=== PATIENT | male | born 1950 | race African-American/Black ===

== ENCOUNTER 2020-08-22 19:41 | Inpatient (IN) ==
[2020-08-22] MEDS ORDERED: SODIUM CHLORIDE 0.9% 1,000 ML IV STA ×2 (20:17→22:40)
[2020-08-22] MEDS ORDERED: IBUPROFEN 600 MG TABLET PO STA (20:17)
[2020-08-22 20:43] LABS: ABG Base Excess -1.4 MMOL/L (-2.5-2.5); ABG HCO3 23.1 MMOL/L (20-26); ABG Oxygen Saturation 90.9 % (95-100); ABG PCO2 41.6 MM HG (35-48); ABG PH 7.367 (7.35-7.45); ABG PO2 65.1 MM HG (80-95); ABG TCO2 20.8 MMOL/L (23-27); Allen Test Positive
[2020-08-22 21:16] LABS: Basophils % 0.1 % (0.0-0.8); Hematocrit 43.8 VOL% (42.0-52.0); Hemoglobin 13.7 GM/DL (14.0-18.0); Immature Granulocytes % 0.8 %; Immature Granulocytes Absolute 0.17 #; Lymphocytes # 7.8 10*3/uL (1.4-4.0); Lymphocytes % 34.3 % (21.2-54.2); Mean Corpuscular HGB Conc 31.3 GM/DL (32-36); Mean Platelet Volume 11.2 FL (9.6-12.0); Monocytes % 4.9 % (1.7-12.7); NRBC # 0.02 10*3/uL; Neutrophils % 59.9 % (38.7-73.9); Platelet Count 176 T/CUMM (130-400); Red Blood Count 4.71 MC/CUMM (3.8-5.5); Red Cell Distribution Width 14.8 % (9.3-17.3); White Blood Count 22.7 T/CUMM (4-12)
[2020-08-22 21:25] LABS: Bilirubin,Urine Negative (Negative); Blood, Urine Small mg/dL (Negative); Glucose,Urine (UA) Negative (Negative); Ketones,Urine Negative (Negative); Nitrite,Urine Negative (Negative); Protein,Urine >=500 MG/DL; RBC,Urine 252 /HPF (0-4); Squamous Epithelial Cell,Urine Occasional /HPF (0-10); Urine Appearance CLOUDY (Clear); Urine Color Amber (Yellow); Urine Specific Gravity 1.029 (1.001-1.035); Urine Urobilinogen < 2.0 EU/DL (0.2-1.0)
[2020-08-22 21:36] LABS: Band Neutrophils 3 % (0-10); Lymphocytes 34 % (20-55); Platelet Estimate Adequate; Reactive Lymphocytes Few; Segmented Neutrophils 58 % (50-85); Total Cells Counted 100
[2020-08-22 21:48] LABS: Alanine Aminotransferase 38 U/L (16-61); Albumin 2.4 G/DL (3.4-5.0); Alkaline Phosphatase 98 U/L (45-117); Aspartate Amino Transferase 74 U/L (0-37); Blood Urea Nitrogen 56 MG/DL (7-18); Calcium 9.2 MG/DL (8.5-10.1); Estimated Glom Filtration Rate 16 ML/MIN; Ferritin 5028.2 ng/ml (26-388); Glucose 230 MG/DL (74-106); Osmolality,Calculated 303.3 MOS/KG (273-304); Total Protein 7.9 G/DL (6.4-8.3)
[2020-08-22] MEDS ORDERED: methylPREDNISolone SOD SUC 125 MG/2 ML VIAL IV STA (21:52)
[2020-08-22] MEDS ORDERED: AZITHROMYCIN INJ 500 MG in SODIUM CHLORIDE 0.9% 250 ML IV STA (21:52)
[2020-08-22] MEDS ORDERED: GLUCAGON 1 MG VIAL IM PRN (23:44)
[2020-08-22] MEDS ORDERED: DEXTROSE 50% 25 GM/50 ML VIAL IV PRN ×2 (23:44→23:57)
[2020-08-22] MEDS ORDERED: guaiFENesin/DM ER 600-30 MG TABLET PO PRN (23:49)
[2020-08-22] MEDS ORDERED: hydrALAZINE 20 MG/1 ML VIAL IV PRN (23:49)
[2020-08-22] MEDS ORDERED: ONDANSETRON 4 MG/2 ML VIAL IV PRN (23:49)
[2020-08-22] MEDS ORDERED: NICOTINE 21 MG/24 HR PATCH TRANSDERM PRN (23:49)
[2020-08-23] MEDS ORDERED: SODIUM CHLORIDE 0.9% 100 ML IV ONE (01:25)
[2020-08-23] MEDS: cefTRIAXone 1,000 MG in SYRINGE 1 EACH IV SCH (01:27)
[2020-08-23] MEDS ORDERED: INFLUENZA VIRUS VACCINE 0.5 ML SYRINGE IM ONE (02:36)
[2020-08-23] MEDS: SODIUM CHLORIDE 0.9% 1,000 ML IV SCH ×2 (04:04→23:00)
[2020-08-23 04:51] LABS: ABG Base Excess -4.7 MMOL/L (-2.5-2.5); ABG HCO3 21.6 MMOL/L (20-26); ABG Oxygen Saturation 93.6 % (95-100); ABG PCO2 44.3 MM HG (35-48); ABG PH 7.305 (7.35-7.45); ABG PO2 76.6 MM HG (80-95); ABG TCO2 22.9 MMOL/L (23-27); Allen Test Positive
[2020-08-23] MEDS: INSULIN REGULAR 100 UNIT/ML SUBCUT SCH ×4 (09:27→22:49)
[2020-08-23] MEDS: ZINC SULFATE 220 MG CAPSULE PO SCH (09:50)
[2020-08-23 10:02] LABS: Basophils % 0.1 % (0.0-0.8); Hematocrit 37.8 VOL% (42.0-52.0); Hemoglobin 11.8 GM/DL (14.0-18.0); Immature Granulocytes % 0.7 %; Immature Granulocytes Absolute 0.14 #; Lymphocytes # 7.6 10*3/uL (1.4-4.0); Lymphocytes % 37.8 % (21.2-54.2); Mean Corpuscular HGB Conc 31.2 GM/DL (32-36); Mean Corpuscular Volume 93.8 FL (87-102); Mean Platelet Volume 11.1 FL (9.6-12.0); Monocytes % 3.5 % (1.7-12.7); NRBC # 0.02 10*3/uL; Neutrophils % 57.9 % (38.7-73.9); Platelet Count 158 T/CUMM (130-400); Red Blood Count 4.03 MC/CUMM (3.8-5.5); Red Cell Distribution Width 15.1 % (9.3-17.3); White Blood Count 20.2 T/CUMM (4-12)
[2020-08-23] MEDS: HEPARIN 5,000 UNIT/1 ML VIAL SUBCUT SCH ×2 (10:06→22:49)
[2020-08-23 10:22] LABS: Atypical Lymphocytes Few; Band Neutrophils 4 % (0-10); Lymphocytes 40 % (20-55); Metamyelocytes 1 %; Segmented Neutrophils 50 % (50-85); Total Cells Counted 100
[2020-08-23 10:23] LABS: Hypochromasia 1+; Microcytosis 1+; Platelet Estimate Adequate
[2020-08-23 10:35] LABS: Alanine Aminotransferase 38 U/L (16-61); Alkaline Phosphatase 67 U/L (45-117); Aspartate Amino Transferase 79 U/L (0-37); Bilirubin,Total < 0.39 MG/DL (0.2-1.0); Blood Urea Nitrogen 70 MG/DL (7-18); Calcium 8.2 MG/DL (8.5-10.1); Estimated Glom Filtration Rate 12 ML/MIN; Glucose 278 MG/DL (74-106); Osmolality,Calculated 320.6 MOS/KG (273-304); Total Protein 6.9 G/DL (6.4-8.3)
[2020-08-23 10:51] LABS: Ferritin 5587.5 ng/ml (26-388)
[2020-08-23] MEDS: methylPREDNISolone SOD SUC 40 MG/1 ML VIAL IV SCH (11:47)
[2020-08-23] MEDS: SODIUM CHLORIDE 0.45% 1,000 ML IV SCH (17:26)
[2020-08-23] MEDS: AZITHROMYCIN INJ 500 MG in SODIUM CHLORIDE 0.9% 250 ML IV SCH (22:50)
[2020-08-24] MEDS: cefTRIAXone 1,000 MG in SYRINGE 1 EACH IV SCH ×2 (00:07→23:56)
[2020-08-24] MEDS: methylPREDNISolone SOD SUC 40 MG/1 ML VIAL IV SCH ×3 (00:07→23:55)
[2020-08-24 05:31] LABS: Basophils % 0.1 % (0.0-0.8); Hematocrit 30.6 VOL% (42.0-52.0); Immature Granulocytes % 0.5 %; Immature Granulocytes Absolute 0.13 #; Lymphocytes # 10.9 10*3/uL (1.4-4.0); Mean Corpuscular HGB Conc 31.7 GM/DL (32-36); Mean Corpuscular Volume 93.6 FL (87-102); Mean Platelet Volume 11.8 FL (9.6-12.0); Monocytes % 3.6 % (1.7-12.7); NRBC # 0.02 10*3/uL; Neutrophils % 49.8 % (38.7-73.9); Platelet Count 157 T/CUMM (130-400); Red Blood Count 3.27 MC/CUMM (3.8-5.5); Red Cell Distribution Width 15.3 % (9.3-17.3); White Blood Count 23.6 T/CUMM (4-12)
[2020-08-24 05:36] LABS: Hemoglobin 9.7 GM/DL (14.0-18.0)
[2020-08-24 05:51] LABS: Band Neutrophils 1 % (0-10); Hypochromasia Slight; Lymphocytes 43 % (20-55); Platelet Estimate Normal; Segmented Neutrophils 54 % (50-85); Total Cells Counted 100
[2020-08-24 05:59] LABS: Calcium 8.2 MG/DL (8.5-10.1); Ferritin 5373.6 ng/ml (26-388); Osmolality,Calculated 319.6 MOS/KG (273-304)
[2020-08-24 06:06] LABS: Parathyroid Hormone Intact 364.3 PG/ML (18.4-80.1)
[2020-08-24 06:08] LABS: Total Protein 6.2 G/DL (6.4-8.3); Uric Acid 10.2 MG/DL (3.5-7.2)
[2020-08-24 09:13] LABS: Immunoglobulin A (Chem) 139 MG/DL (70-400); Immunoglobulin G (Chem) 890 MG/DL (700-1600); Immunoglobulin M (Chem) 150 MG/DL (40-230); Total Protein (Chem) 6.2 G/DL (6.4-8.3)
[2020-08-24] MEDS: INSULIN REGULAR 100 UNIT/ML SUBCUT SCH ×4 (10:09→21:17)
[2020-08-24] MEDS: SODIUM CHLORIDE 0.45% 1,000 ML IV SCH ×3 (10:09→23:58)
[2020-08-24] MEDS: HEPARIN 5,000 UNIT/1 ML VIAL SUBCUT SCH ×2 (10:10→21:16)
[2020-08-24] MEDS: SODIUM CHLORIDE 0.9% 1,000 ML IV SCH ×2 (10:10→23:34)
[2020-08-24 11:05] LABS: Albumin (SPE) 2.7 G/DL (3.2-5.3); Albumin (SPE) Rel % 44.3 %; Alpha 1 (SPE) 0.3 G/DL (0.1-0.4); Alpha 1 (SPE) Rel % 4.9 %; Alpha 2 (SPE) 1.1 G/DL (0.4-1.0); Alpha 2 (SPE) Rel % 17.4 %; Beta (SPE) 1.1 G/DL (0.5-1.1); Beta (SPE) Rel % 17.1 %; Gamma (SPE) Rel % 16.3 %
[2020-08-24 13:37] LABS: Immuno Free Light Chain Kappa 20.67 MG/DL (0.33-1.94); Immuno Free Light Chain Lambda 6.38 MG/DL (0.57-2.63); Immuno Free Light Chain Ratio 3.24 MG/DL (0.26-1.65)
[2020-08-24] MEDS ORDERED: MAGNESIUM HYDROXIDE SUSP 30 ML UDCUP PO STA (16:32)
[2020-08-24] MEDS ORDERED: SODIUM PHOSPHATE ENEMA 133 ML BOTTLE RECTAL STA (16:32)
[2020-08-24] MEDS: AZITHROMYCIN INJ 500 MG in SODIUM CHLORIDE 0.9% 250 ML IV SCH (21:17)
[2020-08-25 05:49] LABS: Basophils % 0.1 % (0.0-0.8); Hematocrit 31.9 VOL% (42.0-52.0); Hemoglobin 10.3 GM/DL (14.0-18.0); Immature Granulocytes % 1.4 %; Immature Granulocytes Absolute 0.35 #; Lymphocytes # 12.2 10*3/uL (1.4-4.0); Lymphocytes % 48.8 % (21.2-54.2); Mean Corpuscular HGB Conc 32.3 GM/DL (32-36); Mean Corpuscular Volume 91.1 FL (87-102); Mean Platelet Volume 11.7 FL (9.6-12.0); Monocytes % 3.4 % (1.7-12.7); NRBC # 0.05 10*3/uL; Neutrophils % 46.3 % (38.7-73.9); Platelet Count 200 T/CUMM (130-400); Red Cell Distribution Width 14.9 % (9.3-17.3); White Blood Count 25.1 T/CUMM (4-12)
[2020-08-25 06:11] LABS: Hypochromasia 1+; Microcytosis 1+; Platelet Estimate Normal
[2020-08-25 06:17] LABS: Albumin 2.1 G/DL (3.4-5.0); Bilirubin,Total 0.4 MG/DL (0.2-1.0); Calcium 8.5 MG/DL (8.5-10.1); Osmolality,Calculated 325.7 MOS/KG (273-304); Total Protein 6.7 G/DL (6.4-8.3)
[2020-08-25 06:41] LABS: Ferritin 6171.7 ng/ml (26-388); Osmolality,Calculated 332.4 MOS/KG (273-304)
[2020-08-25] MEDS: POLYETHYLENE GLYCOL POWDER 17 GM PACK PO SCH (09:18)
[2020-08-25] MEDS: HEPARIN 5,000 UNIT/1 ML VIAL SUBCUT SCH ×2 (09:18→21:18)
[2020-08-25] MEDS: SODIUM BICARB INJ 50 MEQ in DEXTROSE 5% NACL 0.45% 1,000 ML IV SCH (09:18)
[2020-08-25] MEDS: INSULIN REGULAR 100 UNIT/ML SUBCUT SCH ×4 (09:18→21:18)
[2020-08-25] MEDS: ZINC SULFATE 220 MG CAPSULE PO SCH (09:19)
[2020-08-25] MEDS: MEMANTINE 10 MG TABLET PO SCH ×2 (09:45→21:18)
[2020-08-25] MEDS: ASCORBIC ACID 500 MG TABLET PO SCH ×2 (09:45→21:17)
[2020-08-25] MEDS: MULTIVITAMIN (CENTRUM) TABLET PO SCH (09:46)
[2020-08-25] MEDS: PARoxetine 20 MG TABLET PO SCH (09:46)
[2020-08-25] MEDS: methylPREDNISolone SOD SUC 40 MG/1 ML VIAL IV SCH ×2 (12:16→23:10)
[2020-08-25] MEDS: DONEPEZIL 5 MG TABLET PO SCH (21:18)
[2020-08-25] MEDS: AZITHROMYCIN INJ 500 MG in SODIUM CHLORIDE 0.9% 250 ML IV SCH (21:18)
[2020-08-25] MEDS: SIMVASTATIN 20 MG TABLET PO SCH (21:18)
[2020-08-26] MEDS: SODIUM BICARB INJ 50 MEQ in DEXTROSE 5% NACL 0.45% 1,000 ML IV SCH (00:10)
[2020-08-26] MEDS: cefTRIAXone 1,000 MG in SYRINGE 1 EACH IV SCH (01:28)
[2020-08-26 06:09] LABS: Basophils # 0.1 10*3/uL (0.0-0.2); Basophils % 0.3 % (0.0-0.8); Hematocrit 33.9 VOL% (42.0-52.0); Immature Granulocytes % 2.9 %; Immature Granulocytes Absolute 0.79 #; Lymphocytes # 15.2 10*3/uL (1.4-4.0); Lymphocytes % 54.9 % (21.2-54.2); Mean Corpuscular HGB Conc 32.4 GM/DL (32-36); Mean Corpuscular Volume 89.9 FL (87-102); Mean Platelet Volume 10.7 FL (9.6-12.0); NRBC # 0.06 10*3/uL; Neutrophils % 38.9 % (38.7-73.9); Platelet Count 248 T/CUMM (130-400); Red Blood Count 3.77 MC/CUMM (3.8-5.5); Red Cell Distribution Width 14.7 % (9.3-17.3); White Blood Count 27.6 T/CUMM (4-12)
[2020-08-26 06:33] LABS: Atypical Lymphocytes Few; Lymphocytes 53 % (20-55); Platelet Estimate Adequate; Segmented Neutrophils 45 % (50-85); Total Cells Counted 100
[2020-08-26 06:34] LABS: Hypochromasia 1+; Microcytosis 1+; Smudge Cells Few
[2020-08-26 06:58] LABS: Calcium 8.6 MG/DL (8.5-10.1); Ferritin 4520.8 ng/ml (26-388); Osmolality,Calculated 341.3 MOS/KG (273-304)
[2020-08-26] MEDS: MULTIVITAMIN (CENTRUM) TABLET PO SCH (09:08)
[2020-08-26] MEDS: PARoxetine 20 MG TABLET PO SCH (09:09)
[2020-08-26] MEDS: POLYETHYLENE GLYCOL POWDER 17 GM PACK PO SCH (09:09)
[2020-08-26] MEDS: MEMANTINE 10 MG TABLET PO SCH ×2 (09:09→20:30)
[2020-08-26] MEDS: HEPARIN 5,000 UNIT/1 ML VIAL SUBCUT SCH ×2 (09:09→20:30)
[2020-08-26] MEDS: ASCORBIC ACID 500 MG TABLET PO SCH ×2 (09:10→20:30)
[2020-08-26] MEDS: INSULIN REGULAR 100 UNIT/ML SUBCUT SCH ×4 (09:12→20:30)
[2020-08-26] MEDS: methylPREDNISolone SOD SUC 40 MG/1 ML VIAL IV SCH (09:19)
[2020-08-26] MEDS ORDERED: SODIUM BICARB INJ 50 MEQ in STERILE WATER INJ 1,000 ML IV SCH (12:00)
[2020-08-26] MEDS ORDERED: SODIUM CHLORIDE 23.4% CONC INJ 38.5 MEQ, SODIUM BICARB INJ 50 MEQ in STERILE WATER INJ ... IV SCH (13:00)
[2020-08-26] MEDS ORDERED: SODIUM BICARB IV SCH (14:00)
[2020-08-26] MEDS ORDERED: SODIUM CHLORIDE IV SCH ×2 (14:00→17:00)
[2020-08-26] MEDS ORDERED: STERILE WATER IV SCH (14:00)
[2020-08-26] MEDS ORDERED: [UNRECOGNIZED DRUG - OTHER] IV SCH (17:00)
[2020-08-26] MEDS: DEXTROSE 5% NACL 0.45% 1,000 ML IV SCH (17:31)
[2020-08-26] MEDS: DONEPEZIL 5 MG TABLET PO SCH (20:30)
[2020-08-26] MEDS: SIMVASTATIN 20 MG TABLET PO SCH (20:31)
[2020-08-26] MEDS: AZITHROMYCIN INJ 500 MG in SODIUM CHLORIDE 0.9% 250 ML IV SCH (20:32)
[2020-08-26] MEDS: diphenhydrAMINE CAP 25 MG CAPSULE PO PRN (20:32)
[2020-08-27] MEDS: cefTRIAXone 1,000 MG in SYRINGE 1 EACH IV SCH (00:25)
[2020-08-27 07:09] LABS: Calcium 8.9 MG/DL (8.5-10.1); Ferritin 4210.2 ng/ml (26-388)
[2020-08-27 08:34] LABS: Basophils # 0.1 10*3/uL (0.0-0.2); Basophils % 0.3 % (0.0-0.8); Hematocrit 35.4 VOL% (42.0-52.0); Hemoglobin 11.2 GM/DL (14.0-18.0); Immature Granulocytes % 3.7 %; Immature Granulocytes Absolute 1.53 #; Lymphocytes # 23.8 10*3/uL (1.4-4.0); Lymphocytes % 58.2 % (21.2-54.2); Mean Corpuscular HGB Conc 31.6 GM/DL (32-36); Mean Corpuscular Volume 92.2 FL (87-102); Monocytes % 3.6 % (1.7-12.7); NRBC # 0.13 10*3/uL; Neutrophils % 34.2 % (38.7-73.9); Platelet Count 310 T/CUMM (130-400); Red Blood Count 3.84 MC/CUMM (3.8-5.5); Red Cell Distribution Width 14.8 % (9.3-17.3)
[2020-08-27 08:53] LABS: Atypical Lymphocytes Few; Hypochromasia 1+; Lymphocytes 63 % (20-55); Microcytosis Slight; Platelet Estimate Adequate; Segmented Neutrophils 33 % (50-85); Total Cells Counted 100
[2020-08-27] MEDS: MEMANTINE 10 MG TABLET PO SCH ×2 (10:26→20:54)
[2020-08-27] MEDS: POLYETHYLENE GLYCOL POWDER 17 GM PACK PO SCH (10:26)
[2020-08-27] MEDS: MULTIVITAMIN (CENTRUM) TABLET PO SCH (10:26)
[2020-08-27] MEDS: HEPARIN 5,000 UNIT/1 ML VIAL SUBCUT SCH ×2 (10:26→20:54)
[2020-08-27] MEDS: methylPREDNISolone SOD SUC 40 MG/1 ML VIAL IV SCH (10:26)
[2020-08-27] MEDS: INSULIN REGULAR 100 UNIT/ML SUBCUT SCH ×4 (10:26→20:10)
[2020-08-27] MEDS: ZINC SULFATE 220 MG CAPSULE PO SCH (10:26)
[2020-08-27] MEDS: ASCORBIC ACID 500 MG TABLET PO SCH ×2 (10:26→20:54)
[2020-08-27] MEDS: PARoxetine 20 MG TABLET PO SCH (10:26)
[2020-08-27 10:58] LABS: Basophils # 0.2 10*3/uL (0.0-0.2); Basophils % 0.3 % (0.0-0.8); Hematocrit 36.4 VOL% (42.0-52.0); Hemoglobin 11.8 GM/DL (14.0-18.0); Immature Granulocytes % 3.7 %; Immature Granulocytes Absolute 1.62 #; Lymphocytes # 25.2 10*3/uL (1.4-4.0); Lymphocytes % 57.7 % (21.2-54.2); Mean Corpuscular HGB Conc 32.4 GM/DL (32-36); Mean Corpuscular Volume 90.8 FL (87-102); Mean Platelet Volume 10.3 FL (9.6-12.0); Monocytes % 3.3 % (1.7-12.7); NRBC # 0.13 10*3/uL; Platelet Count 330 T/CUMM (130-400); Red Blood Count 4.01 MC/CUMM (3.8-5.5); Red Cell Distribution Width 14.7 % (9.3-17.3)
[2020-08-27 10:59] LABS: White Blood Count 43.7 T/CUMM (4-12)
[2020-08-27 11:17] LABS: Band Neutrophils 3 % (0-10); Lymphocytes 58 % (20-55); Metamyelocytes 1 %; Nucleated Red Blood Cells 1 (0-5); Platelet Estimate Normal; Promyelocytes 2 %; Segmented Neutrophils 35 % (50-85); Total Cells Counted 100
[2020-08-27 11:22] LABS: Anisocytosis Slight; Atypical Lymphocytes 1+; Smudge Cells 1+
[2020-08-27] MEDS: DEXTROSE 5% NACL 0.45% 1,000 ML IV SCH (15:55)
[2020-08-27] MEDS: PIPERACILLIN/TAZOBACTAM 3,375 MG in SODIUM CHLORIDE 0.9% 100 ML IV SCH (16:26)
[2020-08-27] MEDS: DEXTROSE 5% 1,000 ML IV SCH (17:31)
[2020-08-27] MEDS: diphenhydrAMINE CAP 25 MG CAPSULE PO PRN (20:53)
[2020-08-27] MEDS: ACETAMINOPHEN 325 MG TABLET PO PRN (20:53)
[2020-08-27] MEDS: DONEPEZIL 5 MG TABLET PO SCH (20:54)
[2020-08-27] MEDS: SIMVASTATIN 20 MG TABLET PO SCH (20:55)
[2020-08-27] MEDS: AZITHROMYCIN INJ 500 MG in SODIUM CHLORIDE 0.9% 250 ML IV SCH (20:55)
[2020-08-28] MEDS: PIPERACILLIN/TAZOBACTAM 3,375 MG in SODIUM CHLORIDE 0.9% 100 ML IV SCH ×2 (01:35→14:39)
[2020-08-28 06:28] LABS: Basophils # 0.1 10*3/uL (0.0-0.2); Basophils % 0.3 % (0.0-0.8); Hematocrit 36.9 VOL% (42.0-52.0); Hemoglobin 11.7 GM/DL (14.0-18.0); Immature Granulocytes % 3.9 %; Lymphocytes # 28.2 10*3/uL (1.4-4.0); Mean Corpuscular HGB Conc 31.7 GM/DL (32-36); Mean Corpuscular Volume 92.7 FL (87-102); Mean Platelet Volume 10.4 FL (9.6-12.0); Monocytes % 2.4 % (1.7-12.7); NRBC # 0.07 10*3/uL; Neutrophils % 32.4 % (38.7-73.9); Platelet Count 363 T/CUMM (130-400); Red Blood Count 3.98 MC/CUMM (3.8-5.5)
[2020-08-28 06:44] LABS: Ferritin 5089.4 ng/ml (26-388); Osmolality,Calculated 346.4 MOS/KG (273-304)
[2020-08-28 07:07] LABS: White Blood Count 46.1 T/CUMM (4-12)
[2020-08-28] MEDS ORDERED: FUROSEMIDE 40 MG/4 ML VIAL IV ONE (08:55)
[2020-08-28] MEDS: INSULIN REGULAR 100 UNIT/ML SUBCUT SCH ×4 (09:30→21:15)
[2020-08-28] MEDS: HEPARIN 5,000 UNIT/1 ML VIAL SUBCUT SCH ×2 (09:30→21:15)
[2020-08-28] MEDS: PARoxetine 20 MG TABLET PO SCH (09:31)
[2020-08-28] MEDS: DEXAMETHASONE 4 MG TABLET PO SCH (09:31)
[2020-08-28] MEDS: ASCORBIC ACID 500 MG TABLET PO SCH ×2 (09:31→21:14)
[2020-08-28] MEDS: POLYETHYLENE GLYCOL POWDER 17 GM PACK PO SCH (09:31)
[2020-08-28] MEDS: MEMANTINE 10 MG TABLET PO SCH ×2 (09:31→21:14)
[2020-08-28 10:45] LABS: Lymphocytes 61 % (20-55); Segmented Neutrophils 39 % (50-85); Total Cells Counted 100
[2020-08-28 10:46] LABS: Burr Cells Few; Nucleated Red Blood Cells 3 (0-5); Ovalocytes Few; Platelet Estimate Normal; Polychromasia Slight
[2020-08-28] MEDS: DONEPEZIL 5 MG TABLET PO SCH (21:14)
[2020-08-28] MEDS: SIMVASTATIN 20 MG TABLET PO SCH (21:15)
[2020-08-28] MEDS: AZITHROMYCIN INJ 500 MG in SODIUM CHLORIDE 0.9% 250 ML IV SCH (21:18)
[2020-08-28] MEDS: DEXTROSE 5% 1,000 ML IV SCH (22:25)
[2020-08-29] MEDS: PIPERACILLIN/TAZOBACTAM 3,375 MG in SODIUM CHLORIDE 0.9% 100 ML IV SCH ×2 (01:45→15:27)
[2020-08-29 06:19] LABS: Basophils # 0.1 10*3/uL (0.0-0.2); Basophils % 0.3 % (0.0-0.8); Hematocrit 31.7 VOL% (42.0-52.0); Immature Granulocytes % 4.9 %; Immature Granulocytes Absolute 2.19 #; Lymphocytes # 26.2 10*3/uL (1.4-4.0); Lymphocytes % 58.7 % (21.2-54.2); Mean Corpuscular HGB Conc 31.5 GM/DL (32-36); Mean Corpuscular Volume 91.4 FL (87-102); Mean Platelet Volume 10.7 FL (9.6-12.0); Monocytes % 1.3 % (1.7-12.7); NRBC # 0.09 10*3/uL; Neutrophils % 34.8 % (38.7-73.9); Platelet Count 364 T/CUMM (130-400); Red Blood Count 3.47 MC/CUMM (3.8-5.5); Red Cell Distribution Width 15.1 % (9.3-17.3)
[2020-08-29 06:22] LABS: White Blood Count 44.6 T/CUMM (4-12)
[2020-08-29 06:47] LABS: Calcium 8.6 MG/DL (8.5-10.1); Osmolality,Calculated 343.4 MOS/KG (273-304)
[2020-08-29 07:34] LABS: Lymphocytes 64 % (20-55); Platelet Estimate Increased; Segmented Neutrophils 34 % (50-85); Total Cells Counted 100
[2020-08-29 07:40] LABS: Reactive Lymphocytes 1+
[2020-08-29 07:41] LABS: Atypical Lymphocytes Few
[2020-08-29 07:42] LABS: Polychromasia Slight; Target Cells Few
[2020-08-29 07:43] LABS: Anisocytosis Slight; Hypochromasia Slight; Microcytosis 1+
[2020-08-29 07:46] LABS: Smudge Cells Few
[2020-08-29 08:33] LABS: Calcium 9.2 MG/DL (8.5-10.1); Osmolality,Calculated 340.6 MOS/KG (273-304)
[2020-08-29] MEDS: DEXAMETHASONE 4 MG TABLET PO SCH (10:08)
[2020-08-29] MEDS: MEMANTINE 10 MG TABLET PO SCH ×2 (10:08→21:51)
[2020-08-29] MEDS: ASCORBIC ACID 500 MG TABLET PO SCH ×2 (10:08→21:51)
[2020-08-29] MEDS: HEPARIN 5,000 UNIT/1 ML VIAL SUBCUT SCH ×2 (10:08→21:51)
[2020-08-29] MEDS: PARoxetine 20 MG TABLET PO SCH (10:08)
[2020-08-29] MEDS: INSULIN REGULAR 100 UNIT/ML SUBCUT SCH ×4 (10:09→21:53)
[2020-08-29] MEDS: POLYETHYLENE GLYCOL POWDER 17 GM PACK PO SCH (10:10)
[2020-08-29] MEDS: amLODIPine 10 MG TABLET PO SCH (12:05)
[2020-08-29] MEDS: DEXTROSE 5% 1,000 ML IV SCH (12:06)
[2020-08-29] MEDS: DONEPEZIL 5 MG TABLET PO SCH (21:50)
[2020-08-29] MEDS: SIMVASTATIN 20 MG TABLET PO SCH (21:51)
[2020-08-30] MEDS: PIPERACILLIN/TAZOBACTAM 3,375 MG in SODIUM CHLORIDE 0.9% 100 ML IV SCH ×2 (01:58→13:33)
[2020-08-30] MEDS: DEXTROSE 5% 1,000 ML IV SCH ×2 (02:17→18:15)
[2020-08-30 04:29] LABS: Osmolality,Calculated 339.6 MOS/KG (273-304)
[2020-08-30 04:41] LABS: Basophils # 0.2 10*3/uL (0.0-0.2); Basophils % 0.4 % (0.0-0.8); Hematocrit 35.2 VOL% (42.0-52.0); Hemoglobin 11.4 GM/DL (14.0-18.0); Immature Granulocytes % 4.2 %; Immature Granulocytes Absolute 1.78 #; Lymphocytes # 24.9 10*3/uL (1.4-4.0); Lymphocytes % 59.1 % (21.2-54.2); Mean Corpuscular HGB Conc 32.4 GM/DL (32-36); Mean Corpuscular Volume 90.7 FL (87-102); Monocytes % 1.2 % (1.7-12.7); NRBC # 0.09 10*3/uL; Neutrophils % 35.1 % (38.7-73.9); Platelet Count 348 T/CUMM (130-400); Red Blood Count 3.88 MC/CUMM (3.8-5.5); Red Cell Distribution Width 15.2 % (9.3-17.3)
[2020-08-30 04:47] LABS: White Blood Count 42.2 T/CUMM (4-12)
[2020-08-30 05:14] LABS: Band Neutrophils 1 % (0-10); Hypochromasia 1+; Lymphocytes 55 % (20-55); Metamyelocytes 2 %; Myelocytes 1 %; Segmented Neutrophils 39 % (50-85); Total Cells Counted 100
[2020-08-30 05:15] LABS: Atypical Lymphocytes Few; Microcytosis 1+; Tear Drop Cells Slight
[2020-08-30 05:16] LABS: Platelet Estimate Normal
[2020-08-30] MEDS ORDERED: MAGNESIUM HYDROXIDE SUSP 30 ML UDCUP PO PRN (06:59)
[2020-08-30] MEDS: INSULIN REGULAR 100 UNIT/ML SUBCUT SCH ×4 (07:16→20:18)
[2020-08-30 07:56] LABS: Ferritin 6470.3 ng/ml (26-388)
[2020-08-30] MEDS: amLODIPine 10 MG TABLET PO SCH (09:40)
[2020-08-30] MEDS: HEPARIN 5,000 UNIT/1 ML VIAL SUBCUT SCH ×2 (09:40→21:20)
[2020-08-30] MEDS: ASCORBIC ACID 500 MG TABLET PO SCH ×2 (09:40→21:19)
[2020-08-30] MEDS: MEMANTINE 10 MG TABLET PO SCH ×2 (09:40→21:20)
[2020-08-30] MEDS: DEXAMETHASONE 4 MG TABLET PO SCH (09:40)
[2020-08-30] MEDS: PARoxetine 20 MG TABLET PO SCH (09:40)
[2020-08-30] MEDS: CHOLECALCIFEROL 1,000 UNIT TABLET PO SCH (09:40)
[2020-08-30] MEDS: DOCUSATE SODIUM 100 MG CAPSULE PO SCH ×2 (09:40→21:20)
[2020-08-30] MEDS: POLYETHYLENE GLYCOL POWDER 17 GM PACK PO SCH (09:41)
[2020-08-30] MEDS: ACETAMINOPHEN 325 MG TABLET PO PRN ×2 (17:21→21:20)
[2020-08-30] MEDS: DONEPEZIL 5 MG TABLET PO SCH (21:20)
[2020-08-30] MEDS: SIMVASTATIN 20 MG TABLET PO SCH (21:20)
[2020-08-31] MEDS: PIPERACILLIN/TAZOBACTAM 3,375 MG in SODIUM CHLORIDE 0.9% 100 ML IV SCH ×2 (01:05→14:50)
[2020-08-31] MEDS: DEXTROSE 5% 1,000 ML IV SCH (05:49)
[2020-08-31 06:13] LABS: Basophils # 0.1 10*3/uL (0.0-0.2); Basophils % 0.3 % (0.0-0.8); Hematocrit 32.9 VOL% (42.0-52.0); Hemoglobin 10.1 GM/DL (14.0-18.0); Immature Granulocytes Absolute 1.29 #; Lymphocytes # 23.7 10*3/uL (1.4-4.0); Lymphocytes % 55.1 % (21.2-54.2); Mean Corpuscular HGB Conc 30.7 GM/DL (32-36); Mean Corpuscular Volume 95.4 FL (87-102); Mean Platelet Volume 10.7 FL (9.6-12.0); Monocytes % 0.9 % (1.7-12.7); NRBC # 0.13 10*3/uL; Neutrophils % 40.7 % (38.7-73.9); Platelet Count 370 T/CUMM (130-400); Red Blood Count 3.45 MC/CUMM (3.8-5.5); Red Cell Distribution Width 15.5 % (9.3-17.3)
[2020-08-31 06:23] LABS: Calcium 9.3 MG/DL (8.5-10.1); Osmolality,Calculated 331.7 MOS/KG (273-304)
[2020-08-31 07:30] LABS: Atypical Lymphocytes Few; Band Neutrophils 1 % (0-10); Eosinophils 1 % (0-10); Hypochromasia 1+; Lymphocytes 56 % (20-55); Microcytosis 1+; Platelet Estimate Adequate; Segmented Neutrophils 42 % (50-85); Total Cells Counted 100
[2020-08-31 08:19] LABS: ABG Base Excess -4.3 MMOL/L (-2.5-2.5); ABG HCO3 20.7 MMOL/L (20-26); ABG Oxygen Saturation 83.8 % (95-100); ABG PCO2 28.2 MM HG (35-48); ABG PH 7.436 (7.35-7.45); ABG PO2 49.5 MM HG (80-95); ABG TCO2 17.3 MMOL/L (23-27); Allen Test Positive
[2020-08-31] MEDS: INSULIN REGULAR 100 UNIT/ML SUBCUT SCH ×2 (09:03→12:50)
[2020-08-31] MEDS: ASCORBIC ACID 500 MG TABLET PO SCH ×2 (09:45→22:00)
[2020-08-31] MEDS: DOCUSATE SODIUM 100 MG CAPSULE PO SCH ×2 (09:45→22:00)
[2020-08-31] MEDS: PARoxetine 20 MG TABLET PO SCH (09:45)
[2020-08-31] MEDS: DEXAMETHASONE 4 MG TABLET PO SCH (09:45)
[2020-08-31] MEDS: HEPARIN 5,000 UNIT/1 ML VIAL SUBCUT SCH ×2 (09:45→22:00)
[2020-08-31] MEDS: amLODIPine 10 MG TABLET PO SCH (09:45)
[2020-08-31] MEDS: CHOLECALCIFEROL 1,000 UNIT TABLET PO SCH (09:45)
[2020-08-31] MEDS: POLYETHYLENE GLYCOL POWDER 17 GM PACK PO SCH (09:45)
[2020-08-31] MEDS: MEMANTINE 10 MG TABLET PO SCH ×2 (09:45→22:00)
[2020-08-31] MEDS ORDERED: SUCCINYLCHOLINE 200 MG/10 ML VIAL ONE ×2 (11:13→12:01)
[2020-08-31] MEDS ORDERED: ETOMIDATE 20 MG/10 ML VIAL IV ONE ×5 (11:13→12:12)
[2020-08-31] MEDS ORDERED: SODIUM CHLORIDE 0.9% 1,000 ML IV ONE (11:24)
[2020-08-31] MEDS ORDERED: SUCCINYLCHOLINE 200 MG/10 ML VIAL IV ONE ×4 (11:26→12:21)
[2020-08-31] MEDS ORDERED: NOREPINEPHRINE 4 MG/4 ML VIAL IV ONE ×2 (12:03→12:04)
[2020-08-31] MEDS ORDERED: NOREPINEPHRINE 8 MG in SODIUM CHLORIDE 0.9% 242 ML IV PRN (12:06)
[2020-08-31 12:26] LABS: ABG Base Excess -10.6 MMOL/L (-2.5-2.5); ABG HCO3 15.9 MMOL/L (20-26); ABG Oxygen Saturation 95.4 % (95-100); ABG PCO2 36.1 MM HG (35-48); ABG PH 7.251 (7.35-7.45); ABG PO2 97.5 MM HG (80-95); ABG TCO2 14.8 MMOL/L (23-27)
[2020-08-31] MEDS: ROCURONIUM 500 MG in SODIUM CHLORIDE 0.9% 500 ML IV PRN (12:58)
[2020-08-31] MEDS: SODIUM CHLORIDE 0.45% 1,000 ML IV SCH (15:00)
[2020-08-31] MEDS: INSULIN LISPRO 100 UNIT/ML SUBCUT SCH (17:23)
[2020-08-31 20:27] LABS: Amorphous Crystals,Urine Occasional /HPF (Few); Bilirubin,Urine Negative (Negative); Blood, Urine Moderate mg/dL (Negative); Glucose,Urine (UA) 50 mg/dL (Negative); Ketones,Urine Negative (Negative); Nitrite,Urine Negative (Negative); Protein,Urine 100 MG/DL; RBC,Urine 10 /HPF (0-4); Squamous Epithelial Cell,Urine Occasional /HPF (0-10); Urine Appearance CLOUDY (Clear); Urine Color Yellow (Yellow); Urine Specific Gravity 1.015 (1.001-1.035); Urine Urobilinogen < 2.0 EU/DL (0.2-1.0); WBC,Urine 2 /HPF (0-6)
[2020-08-31] MEDS: SIMVASTATIN 20 MG TABLET PO SCH (22:00)
[2020-08-31] MEDS: DONEPEZIL 5 MG TABLET PO SCH (22:00)
[2020-09-01] MEDS: ROCURONIUM 500 MG in SODIUM CHLORIDE 0.9% 500 ML IV PRN (01:07)
[2020-09-01] MEDS: INSULIN LISPRO 100 UNIT/ML SUBCUT SCH ×4 (01:24→17:59)
[2020-09-01] MEDS: PIPERACILLIN/TAZOBACTAM 3,375 MG in SODIUM CHLORIDE 0.9% 100 ML IV SCH ×2 (02:40→14:04)
[2020-09-01 02:52] LABS: ABG Base Excess -6.4 MMOL/L (-2.5-2.5); ABG Oxygen Saturation 93.1 % (95-100); ABG PH 7.381 (7.35-7.45); ABG PO2 70.1 MM HG (80-95); ABG TCO2 16.5 MMOL/L (23-27); Allen Test Positive; Pt O2 Delivery Device Ventilator
[2020-09-01 04:53] LABS: Basophils # 0.1 10*3/uL (0.0-0.2); Basophils % 0.2 % (0.0-0.8); Hematocrit 26.7 VOL% (42.0-52.0); Hemoglobin 8.3 GM/DL (14.0-18.0); Immature Granulocytes % 2.7 %; Immature Granulocytes Absolute 0.96 #; Lymphocytes # 19.5 10*3/uL (1.4-4.0); Mean Corpuscular HGB Conc 31.1 GM/DL (32-36); Mean Platelet Volume 10.8 FL (9.6-12.0); Monocytes % 1.3 % (1.7-12.7); Neutrophils % 41.8 % (38.7-73.9); Platelet Count 320 T/CUMM (130-400); Red Blood Count 2.84 MC/CUMM (3.8-5.5); Red Cell Distribution Width 15.7 % (9.3-17.3); White Blood Count 36.1 T/CUMM (4-12)
[2020-09-01 05:04] LABS: Calcium 8.4 MG/DL (8.5-10.1); Osmolality,Calculated 339.6 MOS/KG (273-304)
[2020-09-01 05:17] LABS: Atypical Lymphocytes Few; Band Neutrophils 2 % (0-10); Hypochromasia 1+; Lymphocytes 56 % (20-55); Microcytosis Slight; Platelet Estimate Adequate; Segmented Neutrophils 37 % (50-85); Total Cells Counted 100
[2020-09-01] MEDS: SODIUM CHLORIDE 0.45% 1,000 ML IV SCH (06:02)
[2020-09-01] MEDS: POLYETHYLENE GLYCOL POWDER 17 GM PACK PO SCH (08:21)
[2020-09-01] MEDS: ASCORBIC ACID 500 MG TABLET PO SCH ×2 (08:21→20:08)
[2020-09-01] MEDS: DOCUSATE SODIUM 100 MG CAPSULE PO SCH ×2 (08:22→20:08)
[2020-09-01] MEDS: HEPARIN 5,000 UNIT/1 ML VIAL SUBCUT SCH ×2 (08:22→20:09)
[2020-09-01] MEDS: PARoxetine 20 MG TABLET PO SCH (08:22)
[2020-09-01] MEDS: DEXAMETHASONE 4 MG TABLET PO SCH (08:22)
[2020-09-01] MEDS: CHOLECALCIFEROL 1,000 UNIT TABLET PO SCH (08:22)
[2020-09-01] MEDS: amLODIPine 10 MG TABLET PO SCH (08:22)
[2020-09-01] MEDS: MEMANTINE 10 MG TABLET PO SCH ×2 (08:22→20:08)
[2020-09-01] MEDS: SODIUM BICARB INJ 100 MEQ in DEXTROSE 5% 1,000 ML IV SCH (12:58)
[2020-09-01] MEDS ORDERED: HEPARIN 10,000 UNIT/10 ML VIAL IV SCH (16:45)
[2020-09-01] MEDS: DONEPEZIL 5 MG TABLET PO SCH (20:08)
[2020-09-01] MEDS: SIMVASTATIN 20 MG TABLET PO SCH (20:08)
[2020-09-01 21:27] LABS: Hepatitis B Core IgM Quant 0.05 Index; Hepatitis B Surface Ag Quant < 0.10 Index; Hepatitis B Surface Ag Result Negative (Negative); Hepatitis C Virus Ab Quant 0.09 Index; Hepatitis C Virus Ab Result Negative (Negative)
[2020-09-01] MEDS: FAMOTIDINE 20 MG/2 ML VIAL IV SCH (21:48)
[2020-09-02] MEDS: INSULIN LISPRO 100 UNIT/ML SUBCUT SCH ×4 (00:50→18:04)
[2020-09-02] MEDS: PIPERACILLIN/TAZOBACTAM 3,375 MG in SODIUM CHLORIDE 0.9% 100 ML IV SCH ×2 (02:17→14:34)
[2020-09-02] MEDS: SODIUM BICARB INJ 100 MEQ in DEXTROSE 5% 1,000 ML IV SCH ×2 (03:45→18:03)
[2020-09-02 04:30] LABS: Basophils % 0.1 % (0.0-0.8); Eosinophils # 0.1 10*3/uL (0.0-0.87); Eosinophils % 0.1 % (0.00-10.9); Hemoglobin 8.9 GM/DL (14.0-18.0); Immature Granulocytes % 3.6 %; Immature Granulocytes Absolute 1.89 #; Lymphocytes # 29.8 10*3/uL (1.4-4.0); Lymphocytes % 56.9 % (21.2-54.2); Mean Corpuscular HGB Conc 31.8 GM/DL (32-36); Mean Corpuscular Volume 97.6 FL (87-102); Mean Platelet Volume 10.6 FL (9.6-12.0); Monocytes % 1.8 % (1.7-12.7); NRBC # 0.41 10*3/uL; Neutrophils % 37.5 % (38.7-73.9); Platelet Count 349 T/CUMM (130-400); Red Blood Count 2.87 MC/CUMM (3.8-5.5); Red Cell Distribution Width 16.5 % (9.3-17.3)
[2020-09-02 04:34] LABS: White Blood Count 52.4 T/CUMM (4-12)
[2020-09-02 04:36] LABS: Allen Test Positive; Pt O2 Delivery Device Ventilator
[2020-09-02 04:41] LABS: ABG HCO3 17.8 MMOL/L (20-26); ABG Oxygen Saturation 95.6 % (95-100); ABG PCO2 43.5 MM HG (35-48); ABG PH 7.244 (7.35-7.45); ABG PO2 92.1 MM HG (80-95); ABG TCO2 18.2 MMOL/L (23-27)
[2020-09-02 04:49] LABS: Calcium 8.6 MG/DL (8.5-10.1); Osmolality,Calculated 339.1 MOS/KG (273-304)
[2020-09-02 05:02] LABS: Eosinophils 1 % (0-10); Lymphocytes 56 % (20-55); Nucleated Red Blood Cells 1 (0-5); Platelet Estimate Normal; Segmented Neutrophils 42 % (50-85); Total Cells Counted 100
[2020-09-02 05:03] LABS: Hypochromasia Slight
[2020-09-02] MEDS: DEXAMETHASONE 4 MG/1 ML VIAL IV SCH (09:16)
[2020-09-02] MEDS: ZINC GLUCONATE 50 MG TABLET PO SCH (09:17)
[2020-09-02] MEDS: MEMANTINE 10 MG TABLET PO SCH ×2 (09:17→20:16)
[2020-09-02] MEDS: HEPARIN 5,000 UNIT/1 ML VIAL SUBCUT SCH ×2 (09:17→20:15)
[2020-09-02] MEDS: amLODIPine 10 MG TABLET PO SCH (09:17)
[2020-09-02] MEDS: POLYETHYLENE GLYCOL POWDER 17 GM PACK PO SCH (09:17)
[2020-09-02] MEDS: CHOLECALCIFEROL 1,000 UNIT TABLET PO SCH (09:17)
[2020-09-02] MEDS: DOCUSATE SODIUM 100 MG CAPSULE PO SCH ×2 (09:17→20:16)
[2020-09-02] MEDS: ASCORBIC ACID 500 MG TABLET PO SCH ×2 (09:18→20:10)
[2020-09-02] MEDS: PARoxetine 20 MG TABLET PO SCH (09:18)
[2020-09-02] MEDS: ROCURONIUM 500 MG in SODIUM CHLORIDE 0.9% 500 ML IV PRN (14:56)
[2020-09-02] MEDS: DONEPEZIL 5 MG TABLET PO SCH (20:04)
[2020-09-02] MEDS: FAMOTIDINE 20 MG/2 ML VIAL IV SCH (20:12)
[2020-09-02] MEDS: SIMVASTATIN 20 MG TABLET PO SCH (20:13)
[2020-09-03] MEDS: INSULIN LISPRO 100 UNIT/ML SUBCUT SCH ×4 (00:24→17:55)
[2020-09-03] MEDS: ROCURONIUM 500 MG in SODIUM CHLORIDE 0.9% 500 ML IV PRN ×3 (00:27→19:11)
[2020-09-03] MEDS: PIPERACILLIN/TAZOBACTAM 3,375 MG in SODIUM CHLORIDE 0.9% 100 ML IV SCH ×2 (03:26→14:51)
[2020-09-03 04:17] LABS: Basophils # 0.1 10*3/uL (0.0-0.2); Basophils % 0.2 % (0.0-0.8); Eosinophils # 0.2 10*3/uL (0.0-0.87); Eosinophils % 0.4 % (0.00-10.9); Hematocrit 23.1 VOL% (42.0-52.0); Hemoglobin 7.8 GM/DL (14.0-18.0); Immature Granulocytes % 3.3 %; Immature Granulocytes Absolute 1.47 #; Lymphocytes # 24.2 10*3/uL (1.4-4.0); Lymphocytes % 54.8 % (21.2-54.2); Mean Corpuscular HGB Conc 33.8 GM/DL (32-36); Mean Corpuscular Volume 98.3 FL (87-102); Mean Platelet Volume 10.5 FL (9.6-12.0); Monocytes % 1.6 % (1.7-12.7); NRBC # 0.23 10*3/uL; Neutrophils % 39.7 % (38.7-73.9); Red Blood Count 2.35 MC/CUMM (3.8-5.5); Red Cell Distribution Width 18.1 % (9.3-17.3)
[2020-09-03 04:19] LABS: Platelet Count 250 T/CUMM (130-400)
[2020-09-03 04:21] LABS: White Blood Count 44.2 T/CUMM (4-12)
[2020-09-03 04:39] LABS: Albumin 1.1 G/DL (3.4-5.0); Bilirubin,Total 0.4 MG/DL (0.2-1.0); Calcium 7.7 MG/DL (8.5-10.1); Osmolality,Calculated 335.6 MOS/KG (273-304); Total Protein 6.1 G/DL (6.4-8.3)
[2020-09-03 04:49] LABS: ABG Base Excess -7.2 MMOL/L (-2.5-2.5); ABG HCO3 19.3 MMOL/L (20-26); ABG Oxygen Saturation 91.9 % (95-100); ABG PH 7.261 (7.35-7.45); ABG PO2 71.4 MM HG (80-95); ABG TCO2 20.7 MMOL/L (23-27); Allen Test Positive; Pt O2 Delivery Device Ventilator
[2020-09-03 05:18] LABS: Atypical Lymphocytes Few; Band Neutrophils 1 % (0-10); Hypochromasia 1+; Lymphocytes 51 % (20-55); Segmented Neutrophils 46 % (50-85); Total Cells Counted 100
[2020-09-03 05:19] LABS: Anisocytosis 1+; Microcytosis 1+; Platelet Estimate Normal; Polychromasia Slight
[2020-09-03] MEDS: HEPARIN 5,000 UNIT/1 ML VIAL SUBCUT SCH ×2 (09:03→20:17)
[2020-09-03] MEDS: DEXAMETHASONE 4 MG/1 ML VIAL IV SCH (09:04)
[2020-09-03] MEDS: ZINC GLUCONATE 50 MG TABLET PO SCH (09:04)
[2020-09-03] MEDS: POLYETHYLENE GLYCOL POWDER 17 GM PACK PO SCH (09:04)
[2020-09-03] MEDS: DOCUSATE SODIUM 100 MG CAPSULE PO SCH ×2 (09:04→20:18)
[2020-09-03] MEDS: PARoxetine 20 MG TABLET PO SCH (09:05)
[2020-09-03] MEDS: amLODIPine 10 MG TABLET PO SCH (09:05)
[2020-09-03] MEDS: MEMANTINE 10 MG TABLET PO SCH ×2 (09:05→20:17)
[2020-09-03] MEDS: CHOLECALCIFEROL 1,000 UNIT TABLET PO SCH (09:05)
[2020-09-03] MEDS: ASCORBIC ACID 500 MG TABLET PO SCH ×2 (09:19→21:11)
[2020-09-03] MEDS: SODIUM BICARB INJ 100 MEQ in DEXTROSE 5% 1,000 ML IV SCH ×2 (09:19→23:31)
[2020-09-03 12:08] LABS: ABG Base Excess -6.2 MMOL/L (-2.5-2.5); ABG HCO3 19.1 MMOL/L (20-26); ABG Oxygen Saturation 78.6 % (95-100); ABG PCO2 52.3 MM HG (35-48); ABG PH 7.226 (7.35-7.45); ABG PO2 52.6 MM HG (80-95); ABG TCO2 20.4 MMOL/L (23-27)
[2020-09-03] MEDS ORDERED: HEPARIN 10,000 UNIT/10 ML VIAL ONE (14:51)
[2020-09-03] MEDS: FAMOTIDINE 20 MG/2 ML VIAL IV SCH (20:17)
[2020-09-03] MEDS: SIMVASTATIN 20 MG TABLET PO SCH (20:17)
[2020-09-03] MEDS: DONEPEZIL 5 MG TABLET PO SCH (20:17)
[2020-09-04] MEDS: INSULIN LISPRO 100 UNIT/ML SUBCUT SCH ×4 (00:20→17:25)
[2020-09-04 03:11] LABS: Allen Test Positive; Pt O2 Delivery Device Ventilator
[2020-09-04 03:12] LABS: ABG Base Excess -6.5 MMOL/L (-2.5-2.5); ABG HCO3 21.2 MMOL/L (20-26); ABG Oxygen Saturation 88.1 % (95-100); ABG PCO2 50.4 MM HG (35-48); ABG PH 7.242 (7.35-7.45); ABG PO2 63.1 MM HG (80-95); ABG TCO2 22.8 MMOL/L (23-27)
[2020-09-04] MEDS: ROCURONIUM 500 MG in SODIUM CHLORIDE 0.9% 500 ML IV PRN ×2 (04:06→14:21)
[2020-09-04 04:47] LABS: Eosinophils # 0.1 10*3/uL (0.0-0.87); Eosinophils % 0.2 % (0.00-10.9); Hemoglobin 7.5 GM/DL (14.0-18.0); Immature Granulocytes % 3.1 %; Immature Granulocytes Absolute 1.79 #; Lymphocytes # 25.3 10*3/uL (1.4-4.0); Lymphocytes % 43.8 % (21.2-54.2); Mean Corpuscular HGB Conc 37.5 GM/DL (32-36); Mean Corpuscular Volume 99.5 FL (87-102); Mean Platelet Volume 10.6 FL (9.6-12.0); Monocytes % 1.5 % (1.7-12.7); NRBC # 0.28 10*3/uL; Neutrophils % 51.4 % (38.7-73.9); Platelet Count 212 T/CUMM (130-400); Red Blood Count 2.01 MC/CUMM (3.8-5.5); Red Cell Distribution Width 18.4 % (9.3-17.3)
[2020-09-04 04:49] LABS: White Blood Count 57.8 T/CUMM (4-12)
[2020-09-04] MEDS: PIPERACILLIN/TAZOBACTAM 3,375 MG in SODIUM CHLORIDE 0.9% 100 ML IV SCH ×2 (04:59→14:32)
[2020-09-04 05:04] LABS: Bilirubin,Total 0.7 MG/DL (0.2-1.0); Calcium 7.3 MG/DL (8.5-10.1); Osmolality,Calculated 316.5 MOS/KG (273-304)
[2020-09-04 05:13] LABS: Band Neutrophils 1 % (0-10); Hypochromasia 1+; Lymphocytes 39 % (20-55); Nucleated Red Blood Cells 1 (0-5); Platelet Estimate Adequate; Segmented Neutrophils 57 % (50-85); Total Cells Counted 100
[2020-09-04 05:14] LABS: Atypical Lymphocytes Few; Microcytosis 1+
[2020-09-04] MEDS: DEXAMETHASONE 4 MG/1 ML VIAL IV SCH (08:16)
[2020-09-04] MEDS: HEPARIN 5,000 UNIT/1 ML VIAL SUBCUT SCH ×2 (08:18→20:30)
[2020-09-04] MEDS: amLODIPine 10 MG TABLET PO SCH (08:18)
[2020-09-04] MEDS: PARoxetine 20 MG TABLET PO SCH (08:18)
[2020-09-04] MEDS: DOCUSATE SODIUM 100 MG CAPSULE PO SCH ×2 (08:19→20:29)
[2020-09-04] MEDS: MEMANTINE 10 MG TABLET PO SCH ×2 (08:19→20:29)
[2020-09-04] MEDS: ASCORBIC ACID 500 MG TABLET PO SCH ×2 (08:19→20:29)
[2020-09-04] MEDS: CHOLECALCIFEROL 1,000 UNIT TABLET PO SCH (08:19)
[2020-09-04] MEDS: ZINC GLUCONATE 50 MG TABLET PO SCH (08:19)
[2020-09-04] MEDS: POLYETHYLENE GLYCOL POWDER 17 GM PACK PO SCH (08:21)
[2020-09-04] MEDS: SODIUM BICARB INJ 100 MEQ in DEXTROSE 5% 1,000 ML IV SCH (14:10)
[2020-09-04] MEDS: SIMVASTATIN 20 MG TABLET PO SCH (20:29)
[2020-09-04] MEDS: DONEPEZIL 5 MG TABLET PO SCH (20:29)
[2020-09-04] MEDS: FAMOTIDINE 20 MG/2 ML VIAL IV SCH (20:30)
[2020-09-04] MEDS ORDERED: INSULIN NPH 100 UNIT/ML SUBCUT SCH (21:00)
[2020-09-05] MEDS: INSULIN LISPRO 100 UNIT/ML SUBCUT SCH ×4 (00:34→19:01)
[2020-09-05] MEDS: PIPERACILLIN/TAZOBACTAM 3,375 MG in SODIUM CHLORIDE 0.9% 100 ML IV SCH ×2 (03:36→14:46)
[2020-09-05 04:10] LABS: Basophils # 0.1 10*3/uL (0.0-0.2); Basophils % 0.2 % (0.0-0.8); Eosinophils # 0.1 10*3/uL (0.0-0.87); Eosinophils % 0.2 % (0.00-10.9); Hemoglobin 6.8 GM/DL (14.0-18.0); Immature Granulocytes % 4.1 %; Immature Granulocytes Absolute 2.48 #; Lymphocytes # 28.6 10*3/uL (1.4-4.0); Lymphocytes % 47.3 % (21.2-54.2); Mean Corpuscular HGB Conc 39.5 GM/DL (32-36); Mean Platelet Volume 10.8 FL (9.6-12.0); Monocytes % 1.4 % (1.7-12.7); NRBC # 0.38 10*3/uL; Neutrophils % 46.8 % (38.7-73.9); Platelet Count 176 T/CUMM (130-400); Red Blood Count 1.72 MC/CUMM (3.8-5.5); Red Cell Distribution Width 21.7 % (9.3-17.3)
[2020-09-05 04:14] LABS: ABG Base Excess -4.6 MMOL/L (-2.5-2.5); ABG HCO3 20.4 MMOL/L (20-26); ABG Oxygen Saturation 81.3 % (95-100); ABG PH 7.236 (7.35-7.45); ABG PO2 56.4 MM HG (80-95)
[2020-09-05 04:16] LABS: Hematocrit 17.2 VOL% (42.0-52.0); White Blood Count 60.5 T/CUMM (4-12)
[2020-09-05 04:29] LABS: Bilirubin,Total 0.6 MG/DL (0.2-1.0); Osmolality,Calculated 308.2 MOS/KG (273-304); Total Protein 5.7 G/DL (6.4-8.3)
[2020-09-05 04:31] LABS: Atypical Lymphocytes Few; Band Neutrophils 2 % (0-10); Lymphocytes 44 % (20-55); Platelet Estimate Adequate; Segmented Neutrophils 51 % (50-85); Smudge Cells Few; Total Cells Counted 100
[2020-09-05 04:32] LABS: Hypochromasia 1+; Microcytosis 1+
[2020-09-05] MEDS: SODIUM BICARB INJ 100 MEQ in DEXTROSE 5% 1,000 ML IV SCH ×3 (05:02→19:01)
[2020-09-05] MEDS: ROCURONIUM 500 MG in SODIUM CHLORIDE 0.9% 500 ML IV PRN ×2 (05:02→10:25)
[2020-09-05] MEDS ORDERED: SODIUM CHLORIDE 0.9% 1,000 ML IV PRN ×2 (05:18→05:20)
[2020-09-05] MEDS: CHOLECALCIFEROL 1,000 UNIT TABLET PO SCH (09:27)
[2020-09-05] MEDS: DEXAMETHASONE 4 MG/1 ML VIAL IV SCH (09:27)
[2020-09-05] MEDS: DOCUSATE SODIUM 100 MG CAPSULE PO SCH (09:27)
[2020-09-05] MEDS: ZINC GLUCONATE 50 MG TABLET PO SCH (09:27)
[2020-09-05] MEDS: PARoxetine 20 MG TABLET PO SCH (09:28)
[2020-09-05] MEDS: POLYETHYLENE GLYCOL POWDER 17 GM PACK PO SCH (09:28)
[2020-09-05] MEDS: amLODIPine 10 MG TABLET PO SCH (09:28)
[2020-09-05] MEDS: MEMANTINE 10 MG TABLET PO SCH (09:28)
[2020-09-05] MEDS: HEPARIN 5,000 UNIT/1 ML VIAL SUBCUT SCH (09:28)
[2020-09-05] MEDS: ASCORBIC ACID 500 MG TABLET PO SCH (09:49)
[2020-09-05 15:25] VITALS: BP 120/64
[2020-09-05] MEDS ORDERED: NOREPINEPHRINE 16 MG in SODIUM CHLORIDE 0.9% 234 ML IV PRN (17:23)
[2020-09-05 17:32] LABS: ABG Base Excess -16.5 MMOL/L (-2.5-2.5); ABG HCO3 11.6 MMOL/L (20-26); ABG Oxygen Saturation 64.8 % (95-100); ABG PCO2 60.7 MM HG (35-48); ABG PO2 51.2 MM HG (80-95); Allen Test Positive; Pt O2 Delivery Device Ventilator
[2020-09-05 17:35] LABS: ABG PH 7.006 (7.35-7.45)
== END 2020-09-05 17:53 | disposition expired | DRG 207 ==
LOC: EDBD → EDUNIT# → N.ED 19:41 → N.EDINP 08-23 00:29 → SUATTDRO 08-23 00:29 → N.2E 08-23 01:14 → N.CC 08-31 10:14
PROVIDERS: ADMIT Internal Medicine; ATTEND Family Medicine